=== PATIENT | female | born 1940 | race African-American/Black ===

== ENCOUNTER 2023-08-01 06:19 | Day surgery (SDC) | payer MEDICARE, MEDICAID ==
[2023-08-01 07:26] VITALS: BP 141/85; TEMP 98.2
[2023-08-01] MEDS ORDERED: PROPOFOL 20 ML ONE (07:34)
[2023-08-01] MEDS ORDERED: FLU VACC QS2023(65UP)/MF59C/PF 60 MCG/0.5 ML SYRINGE IM ONE (07:45)
== END 2023-08-01 09:15 | disposition home or self-care (01) ==
LOC: CSHSDC 06:19
PROVIDERS: ATTEND Specialist
PROC: 5A2204Z Restoration of Cardiac Rhythm, Single (ICD-10-PCS; principal; 2023-08-01)
PROC: B246ZZ4 Ultrasonography of Right and Left Heart, Transesophageal (ICD-10-PCS; 2023-08-01)
DX: I48.19 Other persistent atrial fibrillation (principal); I10 Essential (primary) hypertension; I08.3 Combined rheumatic disorders of mitral, aortic and tricuspid valves; M19.90 Unspecified osteoarthritis, unspecified site; E78.2 Mixed hyperlipidemia; I69.898 Other sequelae of other cerebrovascular disease; Z90.710 Acquired absence of both cervix and uterus; Z79.82 Long term (current) use of aspirin; Z79.01 Long term (current) use of anticoagulants; Z79.899 Other long term (current) drug therapy
CPT/HCPCS: 92960; 93005; 93010; 93312; J2704